=== PATIENT | female | born 2000 | race Caucasian/White ===

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

== ENCOUNTER 2020-02-19 20:46 | Emergency (ER) | payer OTHER, SELFPAY ==
[2020-02-20 14:13] LABS: SARS-CoV-2 MS2 Positive; SARS-CoV-2 N Gene Negative; SARS-CoV-2 S Gene Negative; SARS-CoV-2 orf1ab Negative
== END 2020-02-19 21:37 | disposition home or self-care (01) ==
LOC: ERS 20:46
DX: R11.2 Nausea with vomiting, unspecified (principal); R50.9 Fever, unspecified; R05 Cough; Z20.828 Contact with and (suspected) exposure to other viral communicable diseases; F41.9 Anxiety disorder, unspecified
CPT/HCPCS: 87635; 99283; U0003

== ENCOUNTER 2020-03-28 19:43 | Emergency (ER) | payer OTHER, SELFPAY ==
[2020-03-28] MEDS ORDERED: Dexamethasone 10 MG/ML VIAL ONE (20:08)
[2020-03-29 18:19] LABS: SARS-CoV-2 MS2 Positive; SARS-CoV-2 N Gene Negative; SARS-CoV-2 S Gene Negative; SARS-CoV-2 by NAA Not Detected (NotDetected); SARS-CoV-2 orf1ab Negative
== END 2020-03-28 20:55 | disposition home or self-care (01) ==
LOC: ERS 19:43
DX: J02.9 Acute pharyngitis, unspecified (principal); B97.29 Other coronavirus as the cause of diseases classified elsewhere; F41.9 Anxiety disorder, unspecified
CPT/HCPCS: 87081; 87430; 87635; 99283; J1100; U0003

== ENCOUNTER 2020-06-24 17:10 | Emergency (ER) | payer SELFPAY ==
[~2020-06-24 17:10] MED LIST: Iopamidol 370 76% 100 ML VIAL ONE
[2020-06-24] MEDS ORDERED: Ondansetron PF 4 MG/2 ML Vial ONE (17:57)
[2020-06-24 18:06] LABS: #Basophils 0.1 thou/uL (0.0-0.2); #Eosinphils 0.6 thou/uL (0.0-0.7); #Lymphocytes 2.5 thou/uL (1.20-3.40); #Monocytes 0.7 thou/uL (0.11-0.59); #Neutrophils 5.9 thou/uL (1.40-6.50); %Basophils 1.2 % (0.0-1.0); %Eosinophils 6.3 % (0.0-10.0); %Lymphocytes 25.3 % (28.0-48.0); %Monocytes 6.8 % (0.0-4.0); %Neutrophils 60.4 % (31.0-61.0); Hemoglobin 12.7 g/dL (12.0-16.0); Mean Corpuscular HGB CONC 33.8 g/dL (32.0-36.0); Mean Corpuscular Hemoglobin 28.4 pg (25.0-35.0); Mean Platelet Volume 9.2 fL (7.4-10.4); Platelet Count 305 thou/uL (130-400); RBC Distribution Width 13.1 % (11.5-14.5); Red Blood Cell (RBC) Count 4.46 mill/uL (4.00-5.20); White Blood Cell (WBC) Count 9.8 thou/uL (4.8-10.8)
[2020-06-24 18:13] LABS: PTT 29.3 sec (22.9-36.1); Prothrombin Time 12.9 sec (12.0-14.7)
[2020-06-24 18:26] LABS: ALT (SGPT) 9 U/L (8-55); AST (SGOT) 13 U/L (5-34); Albumin 4.7 g/dL (3.5-5.0); Alkaline Phosphatase 49 U/L (40-100); Anion Gap 16 mmol/L (10-20); BUN (Urea Nitrogen) 12 mg/dL (7.0-18.7); Bilirubin, Total 0.4 mg/dL (0.2-1.2); Calc. Creatinine Clearance 0 mL/min (70-130); Calcium 9.2 mg/dL (7.8-10.44); Carbon Dioxide 20 mmol/L (22-29); Chloride 105 mmol/L (98-107); Estimated GFR-MDRD Greater than 90; Globulin 3.3 g/dL (2.4-3.5); Glucose 82 mg/dL (70-105); Potassium 3.7 mmol/L (3.5-5.1)
[2020-06-24 18:28] LABS: BHCG - Serum Negative (NEGATIVE); Pregs Control Background? CLEAR/WHITE (CLR/WHITE); Pregs Control Bar Appear? YES (CONTROL BAR)
[2020-06-24] MEDS ORDERED: Morphine 4 MG/ML VIAL ONE ×2 (18:47→20:26)
[2020-06-24 19:03] LABS: Sodium 137 mmol/L (136-145)
--- NOTE | 2020-06-24 19:15 | CT ---
CT OF THE ABDOMEN AND PELVIS WITH IV CONTRAST INDICATION: Epigastric and periumbilical abdominal pain COMPARISON: September 12, 2016 FINDINGS: ABDOMEN: Lung bases: Clear Liver: No focal lesion. Gallbladder: Normal appearing. Pancreas: Normal. Adrenal glands: Normal. Spleen: Normal. Kidneys and ureters: Normal. No hydronephrosis. Vasculature: Normal. Lymph nodes:No lymphadenopathy. Free fluid in abdomen:No free fluid is evident. PELVIS: Small and large bowel: Normal Appendix:Normal Bladder: Decompressed Rectal and perirectal soft tissues:Normal. Reproductive structures: There is a new 10.4 x 7.8 x 9 4 cm cyst involving the left adnexa. There is a 2 cm peripherally enhancing cyst within the right adnexa likely reflecting involuting cyst. Free fluid in pelvis: Mild free fluid Lymphadenopathy pelvis: No lymphadenopathy is evident. Osseous structures: No acute osseous abnormality. No destructive osteolytic or osteoblastic lesion i s identified. Soft tissues:Normal. IMPRESSION: 1. Large left adnexal cyst measuring 10.4 x 7.8 x 9.4 cm. Recommend pelvic ultrasound to evaluate for possible left ovarian torsion. 2. Suspected involuting cyst of the right adnexa. 3. Mild free fluid in pelvis.
--- NOTE | 2020-06-24 21:13 | ULT ---
TRANSABDOMINAL AND TRANSVAGINAL PELVIC ULTRASOUND WITH DOPPLER: Date: 06-24-2020 PROVIDED CLINICAL HISTORY: Abdominal pain, pelvic mass on CT. FINDINGS: Correlation is made with the CT performed earlier same date. The uterus appears sonographically unremarkable. There is a large cystic mass in the central pelvis measuring approximately 9.5 x 10.6 x 7.4 cm. This demonstrates diffuse low level echoes. There is evidence for normal flow involving the surrounding le ft ovarian tissue on color doppler and spectral analysis. The right ovary appears sonographically normal with flow documented. There is no evidence for significant free pelvic fluid. IMPRESSION: At least 10 cm cystic pelvic mass, the sonographic appearance of which is suggestive of endometrioma or less likely hemorrhagic ovarian cyst. There is no evidence for associated ovarian torsion. [employer] co nsultation recommended. POS: EMILY
== END 2020-06-24 22:24 | disposition home or self-care (01) ==
LOC: ERS 17:10
DX: N80.9 Endometriosis, unspecified (principal); F41.9 Anxiety disorder, unspecified
CPT/HCPCS: 74177; 76856; 80053; 82274; 83690; 84703; 85025; 85610; 85730; 86850; 86900; 86901; 96374; 96375; 96376; J2270; J2405; Q9967

== ENCOUNTER 2020-06-26 15:13 | Emergency (ER) | payer SELFPAY ==
[2020-06-26] MEDS ORDERED: Ondansetron PF 4 MG/2 ML Vial ONE (16:47)
[2020-06-26] MEDS ORDERED: Morphine 4 MG/ML VIAL ONE (16:47)
[2020-06-26 17:00] LABS: #Basophils 0.1 thou/uL (0.0-0.2); #Eosinphils 0.6 thou/uL (0.0-0.7); #Lymphocytes 1.7 thou/uL (1.20-3.40); #Monocytes 0.6 thou/uL (0.11-0.59); %Basophils 1.1 % (0.0-1.0); %Eosinophils 7.2 % (0.0-10.0); %Lymphocytes 21.7 % (28.0-48.0); %Monocytes 8.1 % (0.0-4.0); %Neutrophils 61.9 % (31.0-61.0); Hemoglobin 12.7 g/dL (12.0-16.0); Mean Corpuscular HGB CONC 34.1 g/dL (32.0-36.0); Mean Corpuscular Hemoglobin 28.9 pg (25.0-35.0); Mean Corpuscular Volume 84.7 fL (78.0-98.0); Mean Platelet Volume 9.2 fL (7.4-10.4); Platelet Count 278 thou/uL (130-400); Red Blood Cell (RBC) Count 4.39 mill/uL (4.00-5.20)
[2020-06-26 17:07] LABS: BHCG - Serum Negative (NEGATIVE); Pregs Control Background? CLEAR/WHITE (CLR/WHITE); Pregs Control Bar Appear? YES (CONTROL BAR)
[2020-06-26 17:29] LABS: ALT (SGPT) 9 U/L (8-55); AST (SGOT) 12 U/L (5-34); Albumin 4.2 g/dL (3.5-5.0); Alkaline Phosphatase 45 U/L (40-100); Anion Gap 15 mmol/L (10-20); BUN (Urea Nitrogen) 10 mg/dL (7.0-18.7); Bilirubin, Total 0.4 mg/dL (0.2-1.2); Calc. Creatinine Clearance 0 mL/min (70-130); Calcium 9.1 mg/dL (7.8-10.44); Carbon Dioxide 22 mmol/L (22-29); Chloride 106 mmol/L (98-107); Estimated GFR-MDRD Greater than 90; Globulin 2.9 g/dL (2.4-3.5); Glucose 99 mg/dL (70-105); Protein, Total 7.1 g/dL (6.0-8.3); Sodium 139 mmol/L (136-145)
[2020-06-26 18:09] LABS: Bacteria/HPF None Seen HPF (None Seen); Bilirubin Negative (Negative); Blood, Urine Negative (Negative); Clarity Clear (Clear); Glucose, Urine (Dipstick) Normal (Negative); Ketone, Urine Negative (Negative); Leukocyte 75 Leu/uL (Negative); Nitrite Negative (Negative); Protein, Urine (Dipstick) Negative (Neg-Trace); RBC/HPF 0-3 HPF (0-3); Urobilinogen Normal mg/dL (Less than 2); WBC/HPF 0-3 HPF (0-3)
--- NOTE | 2020-06-26 19:15 | ULT ---
Exam: Pelvic ultrasound HISTORY: Midline and left-sided pelvic pain. COMPARISON: 06/24/2020 TECHNIQUE: Multiple grayscale and color Doppler images were obtained in a transabdominal pelvic ultra sound. Spectral analysis of the Doppler waveforms of the ovaries were performed. FINDINGS: CERVIX: Unremarkable UTERUS: Normal in size without focal abnormality. ENDOMETRIAL STRIPE: 9 mm which is within normal limits for a normal menstruating female patient. No f luid or fluid collection is seen in the endometrial canal. No free fluid is present. RIGHT OVARY: Normal flow, without focal mass. LEFT OVARY:Normal appearing left ovary is not visualized. There is a large cystic mass seen within th e central pelvis and extending into each adnexal region with greatest dimension of 10.6 cm which demonstrates low level echoes. This was also present on the prior exam and unchanged. There is sugges tion of arterial flow at the periphery of this large cystic lesion. IMPRESSION: Stable large cystic pelvic mass measuring 10.6 cm. Again findings are suggestive of endometrioma or p ossibly hemorrhagic ovarian cyst. Gynecological consultation is recommended this is not been performed.
== END 2020-06-26 18:30 | disposition home or self-care (01) ==
LOC: ERS 15:13
DX: N83.202 Unspecified ovarian cyst, left side (principal); N80.9 Endometriosis, unspecified; R11.2 Nausea with vomiting, unspecified; R31.9 Hematuria, unspecified
CPT/HCPCS: 36415; 76856; 80053; 81003; 81015; 84703; 85025; 93976; 96374; 96375; J2270; J2405

== ENCOUNTER 2020-06-28 15:30 | Observation (INO) | payer SELFPAY ==
[2020-06-28 16:17] LABS: #Basophils 0.1 thou/uL (0.0-0.2); #Eosinphils 0.6 thou/uL (0.0-0.7); #Lymphocytes 1.8 thou/uL (1.20-3.40); #Monocytes 0.8 thou/uL (0.11-0.59); #Neutrophils 8.3 thou/uL (1.40-6.50); %Basophils 0.7 % (0.0-1.0); %Eosinophils 5.6 % (0.0-10.0); %Lymphocytes 15.2 % (21.0-51.0); %Monocytes 6.5 % (0.0-10.0); %Neutrophils 72.1 % (42.0-75.0); Hemoglobin 12.9 g/dL (12.0-16.0); Mean Corpuscular HGB CONC 33.7 g/dL (32.0-36.0); Mean Corpuscular Hemoglobin 28.7 pg (27.0-31.0); Mean Corpuscular Volume 85.1 fL (78.0-98.0); Mean Platelet Volume 8.9 fL (7.4-10.4); Platelet Count 271 thou/uL (130-400); White Blood Cell (WBC) Count 11.5 thou/uL (4.8-10.8)
[2020-06-28 16:21] LABS: BHCG - Serum Negative (NEGATIVE); Pregs Control Background? CLEAR/WHITE (CLR/WHITE); Pregs Control Bar Appear? YES (CONTROL BAR)
--- NOTE | 2020-06-28 16:43 | ULT ---
Pelvic sonogram transabdominal imaging with duplex evaluation HISTORY: Pelvic pain. Bleeding. COMPARISON: 06/26/2020. FINDINGS: Urinary bladder remains decompressed. Uterus has a heterogeneous echotexture and is 7.2 cm length. Endometrium is 1.2 cm thickness on today's exam the large well-circumscribed cystic mass above the bladder favored to be associated with the left adnexa is again demonstrated, showing some i nternal low-level echoes. It is 10.5 cm x 8.9 cm x 7.5 cm greatest diameters on today's study. Color and spectral Doppler flow at the periphery again demonstrated. No free fluid evident within the pelvis. Right ovary is 3.9 cm with good color and spectral Doppler flow. IMPRESSION : Large complex cystic mass, favored to be associated with the left adnexa, is unchanged in appearance. No free fluid. .
[2020-06-28 16:45] LABS: ALT (SGPT) 9 U/L (8-55); AST (SGOT) 10 U/L (5-34); Albumin 4.1 g/dL (3.5-5.0); Alkaline Phosphatase 46 U/L (40-110); Anion Gap 12 mmol/L (10-20); BUN (Urea Nitrogen) 10 mg/dL (7.0-18.7); Bilirubin, Total 0.4 mg/dL (0.2-1.2); Calc. Creatinine Clearance 0 mL/min (70-130); Calcium 8.9 mg/dL (7.8-10.44); Carbon Dioxide 23 mmol/L (22-29); Chloride 107 mmol/L (98-107); Estimated GFR-MDRD Greater than 90; Globulin 2.7 g/dL (2.4-3.5); Glucose 90 mg/dL (70-105); Potassium 3.9 mmol/L (3.5-5.1); Protein, Total 6.8 g/dL (6.0-8.3); Sodium 138 mmol/L (136-145)
[2020-06-28] MEDS ORDERED: Ketorolac Tromethamine 30 MG/ML VIAL ONE (17:19)
[2020-06-28] MEDS ORDERED: Morphine 2 MG/ML VIAL SLOW IVP PRN (18:41)
[2020-06-28] MEDS ORDERED: CEFAZOLIN 2 GM in Premix Bag 1 BAG IVPB SCH (18:45)
[2020-06-28] MEDS: Ondansetron PF 4 MG/2 ML Vial IVP PRN (21:55)
[2020-06-28] MEDS: Sodium Chloride 0.9% 1,000 ML IV SCH (22:01)
[2020-06-28 22:11] VITALS: BMI 32.3
[2020-06-29] MEDS: Sodium Chloride 0.9% 1,000 ML IV SCH ×2 (06:44→16:18)
[2020-06-29 07:49] LABS: SARS-CoV-2 NAA Rapid Test Not Detected (NotDetected)
[2020-06-29] MEDS ORDERED: FLU VACC QS2020-21(6MOS UP)/PF 60 MCG/0.5 ML SYRINGE IM ONE (09:00)
[2020-06-29] MEDS ORDERED: PROPOFOL 200 MG/20 ML VIAL ONE (10:27)
[2020-06-29] MEDS ORDERED: Lidocaine 1% PF 5 ML VIAL ONE (10:27)
[2020-06-29] MEDS ORDERED: Rocuronium Bromide 10 MG/ML (10ML VIAL) ONE (10:27)
[2020-06-29] MEDS ORDERED: Glycopyrrolate 0.2 MG/ML 5 ML SYRINGE ONE (10:27)
[2020-06-29] MEDS ORDERED: Ketorolac Tromethamine 30 MG/ML VIAL ONE (10:27)
[2020-06-29] MEDS ORDERED: Ondansetron PF 4 MG/2 ML Vial ONE (10:27)
[2020-06-29] MEDS ORDERED: Dexamethasone 20 MG/5 ML VIAL ONE (10:27)
[2020-06-29] MEDS ORDERED: Sodium Chloride 0.9% 10 ML ONE (10:28)
[2020-06-29] MEDS ORDERED: Midazolam HCl 2 mg/2 ml Vial ONE ×2 (13:20→13:52)
[2020-06-29] MEDS ORDERED: Fentanyl 100 MCG/2 ML VIAL ONE ×3 (13:20→17:43)
[2020-06-29] MEDS ORDERED: Scopolamine 1.5 mg/72 hour Patch ONE (13:52)
[2020-06-29] MEDS ORDERED: Bupivacaine PF 0.5% 30 ML VIAL ONE (13:58)
[2020-06-29] MEDS ORDERED: Ondansetron HCl/PF 4 MG/2 ML Vial IVP PRN (16:51)
[2020-06-29] MEDS ORDERED: HYDROmorphone 2 MG/ML VIAL SLOW IVP PRN (16:51)
[2020-06-29] MEDS ORDERED: Meperidine HCl/PF 25 MG/ML VIAL SLOW IVP PRN (16:51)
[2020-06-29] MEDS ORDERED: Promethazine HCl 25 MG/ML VIAL SLOW IVP PRN (16:51)
[2020-06-29] MEDS ORDERED: Acetaminophen/Codeine 30-300mg Tablet PO PRN ×2 (20:16)
[2020-06-29] MEDS ORDERED: Ibuprofen 800 MG TAB PO SCH (20:30)
--- NOTE | 2020-06-29 23:30 | OP ---
DATE OF PROCEDURE: 06/29/2020 PREOPERATIVE DIAGNOSES: 1. Large adnexal mass. 2. Acute pelvic pain. 3. History of endometriosis. POSTOPERATIVE DIAGNOSES: 1. Large adnexal mass-endometrioma. 2. Acute pelvic pain. 3. History of endometriosis. 4. Pelvic adhesions. PROCEDURE: Laparoscopic left ovarian cystectomy with lysis of adhesions. ANESTHESIA: General endotracheal. COMPLICATIONS: None. ESTIMATED BLOOD LOSS: 20 mL. FINDINGS: Large left endometrioma, approximately 11 cm. Several other areas of endometriosis visible. Moderate adhesions of the ovary to the colon, posterior cul-de-sac, and right pelvic sidewall. DESCRIPTION OF PROCEDURE: The patient was taken to the operating room where general anesthesia was obtained without difficulty. She was prepared and draped in normal sterile fashion in the dorsal lithotomy position with the Yellofin leg holders. A Trendyta uterine manipulator was placed in the uterus as a means of manipulation. A Hong catheter was placed in the bladder. A 5 mm supraumbilical skin incision was made with a scalpel, and a Veress needle was advanced into the abdominal cavity with intraabdominal placement confirmed with the hanging drop test. The abdomen was insufflated with CO2 gas and a 5 mm trocar was advanced into the abdomen with intraabdominal placement confirmed visually. A second 5 mm incision was made in the right lower quadrant and the 5 mm trocar was advanced under direct visualization. A 10 mm trocar was placed in the left lower quadrant under direct visualization and the above findings were noted. The adhesions of the endometrioma were lysed with LigaSure device and during manipulation of the endometrioma, the thick chocolate-appearing fluid spontaneously started draining. The abdomen was then copiously irrigated and suctioned. The ovarian tissue was then grasped and an attempt was made to shell out the cyst wall; however, it was very friable and difficult to isolate the cyst wall. In order to assure the entire cyst wall was removed, the ovarian tissue that was surrounding the cyst was excised with the LigaSure device with the remainder of the capsule that was visible shelled out with traction using forceps. A large amount of normal ovarian tissue was still present and was copiously irrigated with good hemostasis noted. Interceed was placed around the ovarian remnant to help prevent further adhesions. Again, good hemostasis was noted. The left ovarian cyst and the ovarian tissue were removed with an endobag and the left lower quadrant port was closed using Bjorn- Galina device. The other ports were removed with direct visualization and good hemostasis. The abdomen was desufflated and the supraumbilical port was removed. The skin was closed with 4-0 Monocryl and Dermabond was placed on each incision. The Hulka uterine manipulator was removed with good hemostasis noted. The patient tolerated the procedure well. Sponge, lap, and needle counts were correct x2. The patient was taken to the recovery room in stable condition. Job ID: [id number] [facility]
[2020-06-30] MEDS ORDERED: Sodium Chloride 0.9% 10 ML ONE (01:15)
[2020-06-30] MEDS: Ondansetron PF 4 MG/2 ML Vial IVP PRN (01:24)
[2020-06-30 06:02] LABS: #Lymphocytes 1.5 thou/uL (1.20-3.40); #Monocytes 0.7 thou/uL (0.11-0.59); #Neutrophils 12.8 thou/uL (1.40-6.50); %Basophils 0.2 % (0.0-1.0); %Eosinophils 0.1 % (0.0-10.0); %Lymphocytes 10.1 % (21.0-51.0); %Monocytes 4.5 % (0.0-10.0); %Neutrophils 85.1 % (42.0-75.0); Hemoglobin 11.5 g/dL (12.0-16.0); Mean Corpuscular HGB CONC 33.4 g/dL (32.0-36.0); Mean Corpuscular Hemoglobin 28.1 pg (27.0-31.0); Mean Corpuscular Volume 84.3 fL (78.0-98.0); Platelet Count 230 thou/uL (130-400); RBC Distribution Width 12.8 % (11.5-14.5); Red Blood Cell (RBC) Count 4.08 mill/uL (4.20-5.40); White Blood Cell (WBC) Count 15.1 thou/uL (4.8-10.8)
[2020-06-30] MEDS ORDERED: Ibuprofen 800 MG TAB PO PRN (07:14)
--- NOTE | 2020-06-30 07:41 | PDOC.BPN ---
- Brief Progress Note Encounter Date: 06/30/20 Encounter Time: 07:38 S: Having some pain but bigger issue seems to be nausea from pain medication. Has not tried liquids yet. Has ambulated to bathroom x 3. O: Vital Signs - Most Recent Temp Pulse Resp BP Pulse Ox 98.1 F 67 18 102/53 L 97 06/30/20 04:00 06/30/20 04:00 06/30/20 04:00 06/30/20 04:00 06/29/20 20:00 Gen - AAO, NAD; was resting comfortably Abd - soft, TTP diffusely. Voluntary guarding, no rebound. Incisions appear clean, dry, intact, without evidence of infection. Laboratory Last Values WBC 15.1 thou/uL (4.8-10.8) H 06/30/20 05:47 RBC 4.08 mill/uL (4.20-5.40) L 06/30/20 05:47 Hgb 11.5 g/dL (12.0-16.0) L 06/30/20 05:47 Hct 34.4 % (36.0-47.0) L 06/30/20 05:47 MCV 84.3 fL (78.0-98.0) 06/30/20 05:47 MCH 28.1 pg (27.0-31.0) 06/30/20 05:47 MCHC 33.4 g/dL (32.0-36.0) 06/30/20 05:47 RDW 12.8 % (11.5-14.5) 06/30/20 05:47 Plt Count 230 thou/uL (130-400) 06/30/20 05:47 MPV 9.0 fL (7.4-10.4) 06/30/20 05:47 Neutrophils % 85.1 % (42.0-75.0) H 06/30/20 05:47 Lymphocytes % 10.1 % (21.0-51.0) L 06/30/20 05:47 Monocytes % 4.5 % (0.0-10.0) 06/30/20 05:47 Eosinophils % 0.1 % (0.0-10.0) 06/30/20 05:47 Basophils % 0.2 % (0.0-1.0) 06/30/20 05:47 Neutrophils # 12.8 thou/uL (1.40-6.50) H 06/30/20 05:47 Lymphocytes # 1.5 thou/uL (1.20-3.40) 06/30/20 05:47 Monocytes # 0.7 thou/uL (0.11-0.59) H 06/30/20 05:47 Eosinophils # 0.0 thou/uL (0.0-0.7) 06/30/20 05:47 Basophils # 0.0 thou/uL (0.0-0.2) 06/30/20 05:47 Sodium 138 mmol/L (136-145) 06/28/20 16:05 Potassium 3.9 mmol/L (3.5-5.1) 06/28/20 16:05 Chloride 107 mmol/L (98-107) 06/28/20 16:05 Carbon Dioxide 23 mmol/L (22-29) 06/28/20 16:05 Anion Gap 12 mmol/L (10-20) 06/28/20 16:05 BUN 10 mg/dL (7.0-18.7) 06/28/20 16:05 Creatinine 0.76 mg/dL (0.6-1.1) 06/28/20 16:05 Estimated GFR (MDRD) Greater than 90 06/28/20 16:05 Glucose 90 mg/dL (70-105) 06/28/20 16:05 Calcium 8.9 mg/dL (7.8-10.44) 06/28/20 16:05 Total Bilirubin 0.4 mg/dL (0.2-1.2) 06/28/20 16:05 AST 10 U/L (5-34) 06/28/20 16:05 ALT 9 U/L (8-55) 06/28/20 16:05 Alkaline Phosphatase 46 U/L (40-110) 06/28/20 16:05 Serum Total Protein 6.8 g/dL (6.0-8.3) 06/28/20 16:05 Albumin 4.1 g/dL (3.5-5.0) 06/28/20 16:05 Globulin 2.7 g/dL (2.4-3.5) 06/28/20 16:05 Albumin/Globulin Ratio 1.5 g/dL (1.2-2.2) 06/28/20 16:05 Serum , Qual Negative (NEGATIVE) 06/28/20 16:05 SARS-CoV-2 Rap RNA(RT-PCR) Not Detected (NotDetected) 06/28/20 18:27 A/P: Will d/c Tylenol #3 and do scheduled ibuprofen. Once able to tolerate PO, can go home. Will check out patient to Dr. Liu who will be taking over care today. Has Rx for OCPs and Ibuprofen called into [facility] on [address].
[2020-06-30] MEDS: Sodium Chloride 0.9% 1,000 ML IV SCH (08:41)
[2020-06-30 10:13] VITALS: BP 115/66; TEMP 99.3
--- NOTE | 2020-06-30 13:16 | EKG ---
Test Reason : Blood Pressure : / mmHG Vent. Rate : 062 BPM Atrial Rate : 062 BPM P-R Int : 150 ms QRS Dur : 092 ms QT Int : 440 ms P-R-T Axes : 017 026 040 degrees QTc Int : 446 ms Normal sinus rhythm Normal ECG Confirmed by KASIE RONDON DO ([id number]), staff editor TIAGO COLUNGA ([id number] on 06/30/2020 1:15:33 PM Referred By: Confirmed By:KASIE RONDON DO
--- NOTE | 2020-07-03 12:46 | DIS ---
DATE OF ADMISSION: 06/28/2020 DATE OF DISCHARGE: 06/30/2020 DIAGNOSES: 1. Endometriosis. 2. Endometrioma, status post cystectomy. 3. Pelvic adhesions. PROCEDURES: 1. Laparoscopic left ovarian cystectomy. 2. Lysis of adhesions. HOSPITAL COURSE: The patient was admitted on 06/28 with severe pelvic pain due to a large ovarian cyst. She was placed n.p.o. and scheduled for ovarian cystectomy, which was performed. Postoperatively, she had some urinary retention and pain issues, which resolved overnight, and on postop day 1, she was meeting milestones for discharge. DISCHARGE MEDICATIONS: 1. Oral contraceptive pills. 2. Ibuprofen. FOLLOWUP: Follow up with Dr. Avalos as scheduled. DIET: Regular. ACTIVITIES: As tolerated. Job ID: [id number]
== END 2020-06-30 10:55 | disposition home or self-care (01) ==
LOC: ERS 15:30 → 3SW 17:34 → UNDOADMOB 17:35
PROVIDERS: ADMIT Obstetrics & Gynecology; ATTEND Obstetrics & Gynecology
PROC: 0UB14ZZ Excision of Left Ovary, Percutaneous Endoscopic Approach (ICD-10-PCS; principal; 2020-06-30)
DX: N83.02 Follicular cyst of left ovary (principal); N80.1 Endometriosis of ovary
CPT/HCPCS: 36415; 76856; 80053; 84703; 85025; 87635; 88305; 93005; 93976; 96374; 96375; 96376; G0378; J0690; J1100; J1885; J2250; J2270; J2405; J2704; J3010; S0020; U0002; U0003

== ENCOUNTER 2020-10-22 12:28 | Emergency (ER) | payer SELFPAY ==
[2020-10-22 17:47] LABS: SARS-CoV-2 PCR by NAA Not Detected (NotDetected)
== END 2020-10-22 13:50 | disposition home or self-care (01) ==
LOC: ERS 12:28
DX: J02.9 Acute pharyngitis, unspecified (principal); J34.89 Other specified disorders of nose and nasal sinuses; R05 Cough; M79.10 Myalgia, unspecified site; R06.02 Shortness of breath; Z20.822 Contact with and (suspected) exposure to COVID-19; Z86.16 Personal history of COVID-19
CPT/HCPCS: 87635; 99283; U0003; U0005